=== PATIENT | male | born 1980 | race African-American/Black ===

== ENCOUNTER 2018-07-16 17:49 | Emergency (ER) | payer SELFPAY ==
[2018-07-16 18:01] VITALS: BP 120/71
--- NOTE | 2018-07-16 18:13 | UC ---
Skin Complaint HPI - HPI Summary HPI Summary: has a sebaceous cyst on right jaw-he accidentally nicked it a few days ago no swollen red/tender- - History of Current Complaint Chief Complaint: UCSkin Time Seen by Provider: 07/16/18 18:06 Stated Complaint: SKIN ISSUE Hx Obtained From: Patient Onset/Duration: Sudden Onset, Still Present, Worse Since - past 3 days Timing: Constant Pain Intensity: 3 Pain Scale Used: 0-10 Numeric Location: Discrete Character: Swelling, Redness, Raised Aggravating Factor(s): Nothing Alleviating Factor(s): Nothing Associated Signs & Symptoms: Positive: Tenderness - Allergy/Home Medications Allergies/Adverse Reactions: Allergies Allergy/AdvReac Type Severity Reaction Status Date / Time No Known Allergies Allergy Verified 07/16/18 18:01 PMH/Surg Hx/FS Hx/Imm Hx Previously Healthy: Yes - Surgical History Surgical History: Yes Surgery Procedure, Year, and Place: HERNIA SURGERY - Family History Known Family History: Positive: None - Social History Occupation: Employed Full-time Lives: With Family Alcohol Use: Occasionally Substance Use Type: Marijuana Smoking Status (MU): Never Smoked Tobacco Review of Systems All Other Systems Reviewed And Are Negative: Yes Constitutional: Positive: Negative Skin: Positive: Other - infected abad. cyst right jaw Eyes: Positive: Negative ENT: Positive: Negative Respiratory: Positive: Negative Cardiovascular: Positive: Negative Gastrointestinal: Positive: Negative Genitourinary: Positive: Negative Motor: Positive: Negative Neurovascular: Positive: Negative Musculoskeletal: Positive: Negative Neurological: Positive: Negative Psychological: Positive: Negative Is Patient Immunocompromised?: No Physical Exam Triage Information Reviewed: Yes Appearance: Well-Appearing, No Pain Distress, Well-Nourished Vital Signs: Initial Vital Signs Temp 97.2 F 07/16/18 17:57 Pulse 72 07/16/18 17:57 Resp 18 07/16/18 17:57 BP 120/71 07/16/18 17:57 Pulse Ox 99 07/16/18 17:57 Vital Signs Reviewed: Yes Eye Exam: Normal Eyes: Positive: Conjunctiva Clear ENT Exam: Normal ENT: Positive: Normal ENT inspection, Hearing grossly normal. Negative: Trismus , Muffled voice, Hoarse voice Dental Exam: Normal Neck exam: Normal Neck: Positive: Supple, Nontender Respiratory Exam: Normal Respiratory: Positive: Chest non-tender, No respiratory distress, No accessory muscle use Cardiovascular Exam: Normal Cardiovascular: Positive: RRR, Pulses Normal, Brisk Capillary Refill Musculoskeletal Exam: Normal Musculoskeletal: Positive: Strength Intact, ROM Intact Neurological Exam: Normal Neurological: Positive: Alert, Muscle Tone Normal Psychological Exam: Normal Psychological: Positive: Normal Response To Family Skin Exam: Normal Skin: Positive: Other - infected cyst with out fluctulance or drainage Re-Evaluation - Re-Evaluation First Eval Change: Unchanged Course/Dx - Course Course Of Treatment: warm compresses, bactrim, follow with pcp or return as needed - Diagnoses Provider Diagnosis: Sebaceous cyst Discharge - Sign-Out/Discharge Documenting (check all that apply): Patient Departure All imaging exams completed and their final reports reviewed: No Studies - Discharge Plan Condition: Stable Disposition: HOME Prescriptions: Sulfamethox/Trimethoprim DS* [Bactrim DS 800/160 TAB*] 1 tab PO BID #19 tab Patient Education Materials: Cyst (ED), Warm Compress or Soak (ED) Referrals: [facility] [Outside] - Billing Disposition and Condition Condition: STABLE Disposition: Home
[2018-07-16] MEDS ORDERED: Sulfamethox/Trimethoprim DS 800/160* TAB PO ONE (18:19)
== END 2018-07-16 18:29 | disposition home or self-care (01) ==
LOC: UCEAST 17:49
DX: L72.3 Sebaceous cyst (principal)
CPT/HCPCS: 99212; A9270-GY; G0463

== ENCOUNTER 2018-11-20 10:08 | Emergency (ER) | payer OTHER ==
[2018-11-20 10:31] VITALS: BP 124/58
[2018-11-20] MEDS ORDERED: Cyclobenzaprine TAB* 10 MG PO ONE (11:00)
[2018-11-20] MEDS ORDERED: Naproxen TAB* 250 MG PO ONE (11:00)
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
== END 2018-11-20 11:30 | disposition home or self-care (01) ==
LOC: UCEAST 10:08
DX: M62.830 Muscle spasm of back (principal); M54.5 Low back pain; V43.62XA Car passenger injured in collision with other type car in traffic accident, initial encounter
CPT/HCPCS: 99212; A9270-GY; G0463

== ENCOUNTER 2018-12-14 08:41 | Emergency (ER) | payer SELFPAY ==
[2018-12-14 08:52] VITALS: BP 131/76
--- NOTE | 2018-12-14 09:56 | UC ---
Skin Complaint HPI - HPI Summary HPI Summary: 38 yo male presents with rash. 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 For about a week pt has noticed a scaly colored ring to the right side of his head as well as the right groin. Itchy. Has been applying hydrocortisone cream, coconut lotion, and lotrimin for the last couple days with mild relief but is still present. - History of Current Complaint Chief Complaint: UCRash Time Seen by Provider: 12/14/18 09:56 Stated Complaint: RASH ITCHING Hx Obtained From: Patient Onset/Duration: Gradual Onset Onset Severity: Mild Current Severity: Moderate Pain Intensity: 7 Pain Scale Used: 0-10 Numeric - Allergy/Home Medications Allergies/Adverse Reactions: Allergies Allergy/AdvReac Type Severity Reaction Status Date / Time No Known Allergies Allergy Verified 12/14/18 08:52 PMH/Surg Hx/FS Hx/Imm Hx - Additional Past Medical History Additional PMH: None - Surgical History Surgical History: Yes Surgery Procedure, Year, and Place: HERNIA SURGERY - Family History Known Family History: Positive: None - Social History Occupation: Employed Full-time Lives: With Family Alcohol Use: Occasionally Substance Use Type: Marijuana Smoking Status (MU): Never Smoked Tobacco Review of Systems All Other Systems Reviewed And Are Negative: Yes Constitutional: Positive: Negative Skin: Positive: Rash Respiratory: Positive: Negative Cardiovascular: Positive: Negative Neurovascular: Positive: Negative Neurological: Positive: Negative Psychological: Positive: Negative Physical Exam - Summary Physical Exam Summary: GENERAL: NAD. WDWN. No pain distress. SKIN: Right scalp there is a 1.5cm diameter area of scaly hyperpigmentated skin. Similar appearing lesion on right groin 4.5cm in size. No edema, warmth, or open wound. NECK: Supple. Nontender. No lymphadenopathy. CHEST: No accessory muscle use. Breathing comfortably and in no distress. CV: Pulses intact. Cap refill <2seconds NEURO: Alert. PSYCH: Age appropriate behavior. Triage Information Reviewed: Yes Vital Signs: Initial Vital Signs Temp 98 F 12/14/18 08:50 Pulse 64 12/14/18 08:50 Resp 16 12/14/18 08:50 BP 131/76 12/14/18 08:50 Pulse Ox 100 12/14/18 08:50 Vital Signs Reviewed: Yes Course/Dx - Course Course Of Treatment: Suspect tinea infection. Will have him use clotrimazole cream BID and f/u if symptoms do not improve within 10-14 days - Diagnoses Provider Diagnosis: Tinea corporis Discharge - Sign-Out/Discharge Documenting (check all that apply): Patient Departure All imaging exams completed and their final reports reviewed: No Studies - Discharge Plan Condition: Stable Disposition: HOME Prescriptions: Clotrimazole 1% CREAM* [Clotrimazole 1%*] 1 applic TOPICAL BID #1 tube predniSONE TAB* [Deltasone 20 MG TAB*] 40 mg PO DAILY #10 tab Patient Education Materials: Tinea Corporis (ED) Referrals: No Primary Care Phys,NOPCP [Primary Care Provider] - Additional Instructions: If you develop a fever, shortness of breath, chest pain, new or worsening symptoms - please call your PCP or go to the ED immediately. - Billing Disposition and Condition Condition: STABLE Disposition: Home
== END 2018-12-14 10:08 | disposition home or self-care (01) ==
LOC: UCEAST 08:41
DX: B35.4 Tinea corporis (principal)
CPT/HCPCS: 99212; G0463